=== PATIENT | male | born 1945 | race Caucasian/White ===

== ENCOUNTER 2017-09-26 10:44 | Day surgery (SDC) | payer MEDICARE, OTHER ==
[2018-04-29] MEDS ORDERED: METF500C PO (14:36)
[2018-04-29] MEDS ORDERED: LIRA0.6P SC (14:37)
[2018-04-29] MEDS ORDERED: GLIM2 PO (14:37)
[2018-06-17] MEDS ORDERED: METF500C PO (14:17)
[2018-06-17] MEDS ORDERED: GLIM4 PO (14:18)
[2018-06-17] MEDS ORDERED: PRAV20 PO (14:18)
[2018-06-17] MEDS ORDERED: LISI5 PO (14:19)
[2018-06-17] MEDS ORDERED: ERGO400 PO (14:20)
[2018-06-17] MEDS ORDERED: EYE-VITE PO (14:20)
[2018-06-17] MEDS ORDERED: ASPI81CH PO (14:21)
[2018-06-17] MEDS ORDERED: PREVAGEN PO (14:21)
[2018-06-17] MEDS ORDERED: Saw Palmetto450 MG PO (14:23)
[2018-06-17] MEDS ORDERED: Cinnamon500 MG PO (14:23)
[2018-06-17] MEDS ORDERED: DICL75ER PO (14:24)
[2018-06-17] MEDS ORDERED: NOVOLIN 70100 UNIT/1 SC (14:25)
[2018-06-30] MEDS ORDERED: LIRA0.6P SC (08:23)
[2018-06-30] MEDS ORDERED: KAPSPARGO SPRIN25 MG PO (08:24)
[2018-07-02] MEDS ORDERED: OXYC5 PO (13:57)
[2018-07-02] MEDS ORDERED: ASPI325 PO (14:16)
== END 2017-09-26 12:24 | disposition home or self-care (01) ==
LOC: ORSCSDS 10:44
PROVIDERS: Orthopaedic Surgery
PROC: 01N50ZZ Release Median Nerve, Open Approach (ICD-10-PCS; principal; 2017-09-26 12:00)
DX: G56.01 Carpal tunnel syndrome, right upper limb (principal)
CPT/HCPCS: 82947; J0690; J2250; J3010; J7120

== ENCOUNTER 2019-06-24 16:54 | Emergency (ER) | payer MEDICARE, OTHER ==
[~2019-06-24] VITALS: Ht 180.3 cm; Wt 108.4 kg
[~2019-06-24 16:54] MED LIST: ASPI325 PO; ASPI81CH PO; Cinnamon500 MG PO; DICL75ER PO; ERGO400 PO; EYE-VITE PO; GLIM2 PO; GLIM4 PO; KAPSPARGO SPRIN25 MG PO; LIRA0.6P SC; LISI5 PO; METF500C PO; NOVOLIN 70100 UNIT/1 SC; OXYC5 PO; PRAV20 PO; PREVAGEN PO; Saw Palmetto450 MG PO
[2019-06-24] MEDS ORDERED: TAMS.4ER PO (17:19)
[2019-06-24] MEDS ORDERED: DOXA2 PO (17:20)
[2019-06-24] MEDS ORDERED: PRINIVIL10 MG PO (17:21)
[2019-06-24] MEDS ORDERED: XARELTO15 MG PO (18:18)
[2019-06-24 18:23] LABS: BASOPHILS ABSOLUTE AUTO 0.06 K/mm3 (0.00-0.23); BASOPHILS PERCENT AUTO 1 % (0-2); EOSINOPHILS ABSOLUTE AUTO 0.31 K/mm3 (0.00-0.68); EOSINOPHILS PERCENT AUTO 4 % (0-6); Hematocrit 43.2 % (37.0-53.0); Hemoglobin 14.9 g/dL (13.5-17.5); IMMATURE GRAN ABSOLUTE AUTO 0.05 K/mm3 (0.00-0.10); IMMATURE GRAN PERCENT AUTO 1 % (0-1); LYMPHOCYTES ABSOLUTE AUTO 2.33 K/mm3 (0.84-5.20); LYMPHOCYTES PERCENT AUTO 26 % (21-46); MONOCYTES ABSOLUTE AUTO 0.87 K/mm3 (0.16-1.47); MONOCYTES PERCENT AUTO 10 % (4-13); Mean Corpuscular HGB 33.6 pg (26.0-34.0); Mean Corpuscular HGB Conc 34.5 g/dL (31.5-36.5); Mean Corpuscular Volume 98 fL (80-100); NEUTROPHILS ABSOLUTE AUTO 5.34 K/mm3 (1.96-9.15); NEUTROPHILS PERCENT AUTO 60 % (41-73); Platelet Count 237 K/mm3 (150-400); RDW Coefficient Variation 12.7 % (11.7-14.2); RDW Standard Deviation 45.9 fL (35.1-46.3); Red Blood Cell Count 4.43 M/mm3 (4.30-5.90); White Blood Cell Count 8.96 K/mm3 (4.00-11.30)
[2019-06-24] MEDS ORDERED: Roxicodone5 MG PO (18:27)
[2019-06-24 18:39] LABS: International Normalized Ratio 0.97; Prothrombin Time Results 10.3 Sec (9.7-11.5)
[2019-06-24 18:40] LABS: Alanine Aminotransfer (ALT/SGP 22 U/L (12-78); Albumin, Blood 3.5 g/dL (3.4-5.0); Albumin/Globulin Ratio 0.9 (0.8-1.8); Alk Phos 84 U/L (50-136); Anion Gap 6 mmol/L (6-16); Aspartate Aminotrans (AST/SGOT 11 U/L (12-37); Bilirubin, Total 0.6 mg/dL (0.1-1.0); Blood Urea Nitrogen 12 mg/dL (8-24); Bun/Creatinine Ratio 16.8 (12.0-20.0); CO2, Blood 23 mmol/L (21-32); Calcium, Blood 9.3 mg/dL (8.5-10.1); Chloride, Blood 109 mmol/L (98-108); Creatinine, Blood 0.71 mg/dL (0.60-1.20); Glomerular Filtration Rate >60 (60-); Glucose, Blood 176 mg/dL (70-99); Potassium, Blood 4.3 mmol/L (3.5-5.5); Sodium, Blood 138 mmol/L (136-145); Total Protein, Blood 7.5 g/dL (6.4-8.2)
== END 2019-06-24 18:37 | disposition home or self-care (01) ==
LOC: ER 16:54
PROVIDERS: Physician Assistant
DX: I82.401 Acute embolism and thrombosis of unspecified deep veins of right lower extremity (principal); F17.200 Nicotine dependence, unspecified, uncomplicated; Z88.5 Allergy status to narcotic agent; Z91.040 Latex allergy status; Z79.899 Other long term (current) drug therapy; Z79.4 Long term (current) use of insulin; Z79.82 Long term (current) use of aspirin
CPT/HCPCS: 36415; 80053; 85025; 85610; 99284-25

== ENCOUNTER 2019-09-29 11:34 | Day surgery (SDC) | payer MEDICARE, OTHER ==
[~2019-09-29] VITALS: Ht 180.3 cm; Wt 109.7 kg
[~2019-09-29 11:34] MED LIST changes: +Alendronate Sod70 MG PO; +DOXA2 PO; +METO25ER PO; +Novolin R100 UNIT/M SC; +PRESERVISION A1 EACH PO; +PRINIVIL10 MG PO; +Prinivil10 MG PO; +Roxicodone5 MG PO; +TAMS.4ER PO; +THERA-D2000 UNIT PO; +XARELTO15 MG PO
== END 2019-09-29 13:53 | disposition home or self-care (01) ==
LOC: ORSCSDS 11:34
PROVIDERS: Surgery
PROC: 0DBE8ZX Excision of Large Intestine, Via Natural or Artificial Opening Endoscopic, Diagnostic (ICD-10-PCS; principal; 2019-09-29 13:00)
DX: R19.7 Diarrhea, unspecified (principal); E11.9 Type 2 diabetes mellitus without complications; E78.00 Pure hypercholesterolemia, unspecified; I10 Essential (primary) hypertension; Z86.718 Personal history of other venous thrombosis and embolism; Z79.01 Long term (current) use of anticoagulants; Z79.4 Long term (current) use of insulin; Z79.899 Other long term (current) drug therapy
CPT/HCPCS: 82947; 88305; J2704; J7120

== ENCOUNTER 2021-01-28 22:51 | Inpatient (IN) | payer MEDICARE, OTHER ==
[~2021-01-28] VITALS: Ht 182.9 cm; Wt 108.7 kg
[~2021-01-28 22:51] MED LIST changes: +NOVOLIN 70100 UNIT/3; -Novolin R100 UNIT/M SC; +PRESERVISION A1 EAC1 PO; -PRESERVISION A1 EACH PO
[2021-01-28 23:18] LABS: BASOPHILS ABSOLUTE AUTO 0.01 K/mm3 (0.00-0.23); BASOPHILS PERCENT AUTO 0 % (0-2); EOSINOPHILS PERCENT AUTO 0 % (0-6); Hematocrit 37.4 % (37.0-53.0); Hemoglobin 13.3 g/dL (13.5-17.5); IMMATURE GRAN ABSOLUTE AUTO 0.04 K/mm3 (0.00-0.10); IMMATURE GRAN PERCENT AUTO 0 % (0-1); LYMPHOCYTES ABSOLUTE AUTO 0.61 K/mm3 (0.84-5.20); LYMPHOCYTES PERCENT AUTO 6 % (21-46); MONOCYTES ABSOLUTE AUTO 0.76 K/mm3 (0.16-1.47); MONOCYTES PERCENT AUTO 8 % (4-13); Mean Corpuscular HGB Conc 35.6 g/dL (31.5-36.5); Mean Corpuscular Volume 93 fL (80-100); Mean Platelet Volume 10.7 fL (9.1-12.4); NEUTROPHILS ABSOLUTE AUTO 8.06 K/mm3 (1.96-9.15); NEUTROPHILS PERCENT AUTO 85 % (41-73); Platelet Count 176 K/mm3 (150-400); RDW Coefficient Variation 12.8 % (11.7-14.2); RDW Standard Deviation 43.8 fL (35.1-46.3); Red Blood Cell Count 4.03 M/mm3 (4.30-5.90); White Blood Cell Count 9.48 K/mm3 (4.00-11.30)
[2021-01-28] MEDS ORDERED: PIOGLITAZONE HC15 MG PO (23:22)
[2021-01-28 23:30] LABS: Alanine Aminotransfer (ALT/SGP 40 U/L (12-78); Albumin, Blood 2.5 g/dL (3.4-5.0); Albumin/Globulin Ratio 0.6 (0.8-1.8); Alk Phos 67 U/L (50-136); Anion Gap 8 mmol/L (6-16); Aspartate Aminotrans (AST/SGOT 43 U/L (12-37); Bilirubin, Total 0.7 mg/dL (0.1-1.0); Blood Urea Nitrogen 14 mg/dL (8-24); Bun/Creatinine Ratio 16.5 (12.0-20.0); CO2, Blood 20 mmol/L (21-32); Calcium, Blood 8.3 mg/dL (8.5-10.1); Chloride, Blood 99 mmol/L (98-108); Creatinine, Blood 0.85 mg/dL (0.60-1.20); Globulin, Blood 4.4 g/dL (2.2-4.0); Glomerular Filtration Rate >60 (60-); Glucose, Blood 248 mg/dL (70-99); Potassium, Blood 3.7 mmol/L (3.5-5.5); Sodium, Blood 127 mmol/L (136-145); Total Protein, Blood 6.9 g/dL (6.4-8.2)
[2021-01-29 00:05] LABS: Troponin I <0.015 ng/mL (0.000-0.040)
--- NOTE | 2021-01-29 03:26 | NUR ---
ASSUMED CARE PT ARRIVED ON FLOOR APPROX 0200. PT IS ALERTX 2-3. PT FOLLOWS COMMANDS BUT IS FORGETFUL AND UNABLE TO GIVE ALL OF MEDICAL HX. PT'S IS AT BEDSIDE AND IS ALSO UNABLE TO HELP WITH ALL OF MEDICAL HX DUE TO BEING QUILEUTE. PT IS QUILEUTE. VITAL SIGNS ARE STABLE. PT IS ON 5L NC WITH SATS ABOVE 92%. PT DENIES CHEST PAIN AND STS SOB ONLY WHEN COUGHING. PT HAS A WEAKNESS IN RIGHT ARM AND IS UNABLE TO MOVE IT BY SELF; REQUIRES ASSISTANCE OF LEFT HAND; PT STS THAT THAT IS DUE TO THE MODERNA VACINE. PT IS WEARING HOME BRIEF AND STS THAT HE IS INCONT OF BOTH BOWEL AND URINE. PT WAS ORIENTED TO ROOM AND CALL LIGHT IS WITHIN REACH. WILL CONTINUE TO MONITOR PT.
--- NOTE | 2021-01-29 04:51 | NUR ---
PT'S SATS WERE BELOW 85% ON 5LNC. RT WAS CALLED AND WAS PUT ON 9L HIFLOW.
[2021-01-29 05:40] LABS: Source, Urine Clean Catch
[2021-01-29 05:43] LABS: Bilirubin, Urine Neg (Neg); Blood, Urine 1+ (Neg); Glucose Qualitative, Urine 1+ (Neg); Ketones, Urine 1+ (Neg); Leukocyte Esterase, Urine Neg (Neg); Nitrite, Urine Neg (Neg); Protein, Urine 3+ (Neg); Specific Gravity, Urine 1.015 (1.003-1.022); Urobilinogen, Urine NORM (Normal)
[2021-01-29 05:52] LABS: Appearance, Urine Clear (Clear); Color, Urine Yellow (P-Yellow)
[2021-01-29 05:54] LABS: Bacteria Few /hpf; Red Blood Cells, Urine 0-2 /hpf (0-2); Squamous Epithelial Cells Rare /hpf (Few)
--- NOTE | 2021-01-29 07:07 | NUR ---
SHIFT SUMMARY PT IS ALERT WITH SOME CONFUSION AND FORGETFULNESS. VITALS ARE STABLE AND ON 9L HIFLOW NC WITH SATS ABOVE 92%. PT DENIES CP AND SOME SOB WHEN COUGHING. PT'S IS IN ROOM WITH HIM. PT STS THAT HE IS INCONT OF STOOL AND URINE AND BRIEF IS IN PLACE. PT IS STABLE ON FEET WITH SOME WEAKNESS. PT IS INFUSING NS.
[2021-01-29 11:43] LABS: BASOPHILS PERCENT AUTO 0 % (0-2); EOSINOPHILS PERCENT AUTO 0 % (0-6); Hematocrit 40.2 % (37.0-53.0); IMMATURE GRAN ABSOLUTE AUTO 0.03 K/mm3 (0.00-0.10); IMMATURE GRAN PERCENT AUTO 1 % (0-1); LYMPHOCYTES ABSOLUTE AUTO 0.41 K/mm3 (0.84-5.20); LYMPHOCYTES PERCENT AUTO 8 % (21-46); MONOCYTES ABSOLUTE AUTO 0.24 K/mm3 (0.16-1.47); MONOCYTES PERCENT AUTO 5 % (4-13); Mean Corpuscular HGB 32.7 pg (26.0-34.0); Mean Corpuscular HGB Conc 34.8 g/dL (31.5-36.5); Mean Corpuscular Volume 94 fL (80-100); NEUTROPHILS ABSOLUTE AUTO 4.59 K/mm3 (1.96-9.15); NEUTROPHILS PERCENT AUTO 87 % (41-73); Platelet Count 161 K/mm3 (150-400); RDW Coefficient Variation 12.9 % (11.7-14.2); RDW Standard Deviation 44.3 fL (35.1-46.3); Red Blood Cell Count 4.28 M/mm3 (4.30-5.90); White Blood Cell Count 5.27 K/mm3 (4.00-11.30)
[2021-01-29 12:11] LABS: Alanine Aminotransfer (ALT/SGP 38 U/L (12-78); Albumin, Blood 2.3 g/dL (3.4-5.0); Albumin/Globulin Ratio 0.5 (0.8-1.8); Alk Phos 66 U/L (50-136); Anion Gap 5 mmol/L (6-16); Aspartate Aminotrans (AST/SGOT 51 U/L (12-37); Bilirubin, Total 0.6 mg/dL (0.1-1.0); Blood Urea Nitrogen 15 mg/dL (8-24); Bun/Creatinine Ratio 21.8 (12.0-20.0); CO2, Blood 21 mmol/L (21-32); Calcium, Blood 8.7 mg/dL (8.5-10.1); Chloride, Blood 104 mmol/L (98-108); Creatinine, Blood 0.69 mg/dL (0.60-1.20); Globulin, Blood 4.9 g/dL (2.2-4.0); Glomerular Filtration Rate >60 (60-); Glucose, Blood 290 mg/dL (70-99); Potassium, Blood 5.4 mmol/L (3.5-5.5); Sodium, Blood 130 mmol/L (136-145); Total Protein, Blood 7.2 g/dL (6.4-8.2)
--- NOTE | 2021-01-29 18:37 | NUR ---
PT PRESENTS WITH IMPAIRED COGNITION THROUGHOUT SHIFT; PT'S AT BEDSIDE; PT AND DENY IMPAIRED COGNITION; PT EXHIBITS SEVERE SHORT TERM MEMORY DEFICIT AND INFORMATION PROCESSING ISSUES; PT SATTING >92% ON 9L HUMIDIFIED OXYGEN; PT HAD FORMED BM; PT HEAVILY DIAPHORETIC BUT DENIED ANY OTHER SYMPTOMS; PT HAD FREQUENT PVCS; DR. LACY NOTIFIED OF THIS AT 1004; PT'S HEART RATE IN 40'S AND 50'S SO METOPROLOL AND LISINOPRIL HELD AND DR. LACY NOTIFIED OF THIS AT 1103; PT'S CBGS REQUIRED CORRECTION PER MAR; PT DENIES ADDITIONAL CONCERNS AT THIS TIME
--- NOTE | 2021-01-30 05:48 | NUR ---
SHIFT SUMMARY PATIENT IS ALERT AND ORIENTED X3, BUT SHOWS CONFUSION AND SAYS THINGS THAT DO NOT MAKE SENSE. HE IS UNAWARE OF THINGS LIKE THE NC IN HIS NOSE, OR HIS MEDICATION, HE IS A POOR HISTORIAN. PATIENT STATES HAVING RIGHT ARM WEAKNESS AND CAN NOT LIFT IT BUT WHEN DOING MY ASSESSMENT PATIENT LIFTED BOTH ARMS AND HAD EQUAL INCOME AUDITOR STRENGTH, AND USES RIGHT ARM. 02 SATS 94% ON 9L VIA NC. LUNGS SOUNDS DIMINISHED. PATIENT IS ANXIOUS AND GETS AGITATED EASILY. CBG 375, MEDICATED PER EMAR AND CALLED HOSPITALIST, ORDERS TO CHANGE COVERAGE SCALE TO MEDIUM, ADDITIONAL INSULIN GIVEN, SEE EMAR. VSS, NO ACUTE CHANGES. BED ALARM IS ON, CALL LIGHT IN REACH.
[2021-01-30 07:49] LABS: BASOPHILS ABSOLUTE AUTO 0.01 K/mm3 (0.00-0.23); BASOPHILS PERCENT AUTO 0 % (0-2); EOSINOPHILS PERCENT AUTO 0 % (0-6); Hematocrit 41.2 % (37.0-53.0); Hemoglobin 14.3 g/dL (13.5-17.5); IMMATURE GRAN ABSOLUTE AUTO 0.07 K/mm3 (0.00-0.10); IMMATURE GRAN PERCENT AUTO 1 % (0-1); LYMPHOCYTES ABSOLUTE AUTO 0.76 K/mm3 (0.84-5.20); LYMPHOCYTES PERCENT AUTO 7 % (21-46); MONOCYTES ABSOLUTE AUTO 0.73 K/mm3 (0.16-1.47); MONOCYTES PERCENT AUTO 7 % (4-13); Mean Corpuscular HGB 32.6 pg (26.0-34.0); Mean Corpuscular HGB Conc 34.7 g/dL (31.5-36.5); Mean Corpuscular Volume 94 fL (80-100); NEUTROPHILS ABSOLUTE AUTO 9.06 K/mm3 (1.96-9.15); NEUTROPHILS PERCENT AUTO 85 % (41-73); Platelet Count 210 K/mm3 (150-400); RDW Coefficient Variation 12.6 % (11.7-14.2); RDW Standard Deviation 44.1 fL (35.1-46.3); Red Blood Cell Count 4.38 M/mm3 (4.30-5.90); White Blood Cell Count 10.63 K/mm3 (4.00-11.30)
[2021-01-30 08:06] LABS: Anion Gap 5 mmol/L (6-16); Blood Urea Nitrogen 19 mg/dL (8-24); Bun/Creatinine Ratio 25.4 (12.0-20.0); CO2, Blood 24 mmol/L (21-32); Calcium, Blood 8.7 mg/dL (8.5-10.1); Chloride, Blood 105 mmol/L (98-108); Creatinine, Blood 0.75 mg/dL (0.60-1.20); Glomerular Filtration Rate >60 (60-); Glucose, Blood 316 mg/dL (70-99); Potassium, Blood 3.9 mmol/L (3.5-5.5); Sodium, Blood 134 mmol/L (136-145)
--- NOTE | 2021-01-30 10:39 | NUR ---
PT ALERT AND ORIENTED X4 ABLE TO ANSWER ALL ORIENTING QUESTIONS APPROPRIATLY. AT TIMES REPEATING SELF AND HAS RANDOM STATEMENTS. ANXIOUS THIS MORNING ABOUT AT HOME. CASE MANAGEMENT CONTACTED TO MEET WITH PATIENT. TELE SHOWING SINUS WITH PVCS AND HR 70'S. DENIES CHEST PAIN/PRESSURE. ON 9 L O2 VIA NASAL CANNULA SATING AT 94-95%. DENIES SOB. AUDIBLE WHEEZING AND SOB WITH MOVEMENT IN BED. BED ALARM ON FOR SAFETY. USING URINAL WITH ASSITANCE. ATTENDS IN PLACE. RIGHT WRIST IV FLUSHING WELL AND SALINE LOCKED. IV ANTIBIOTICS INFUSED THIS AM. ACHS IN PLACE. VITAL SIGNS STABLE. PT DENIES ANY NEEDS. PT USING PERSONAL CELLPHONE AND ATTEMPTED TO REACH MULTIPLE TIMES THIS AM. WILL CONTINUE TO MONITOR AND TRANSFER UP TO MEDICAL FLOOR.
--- NOTE | 2021-01-30 11:39 | NUR ---
PT TRANSFERRED FROM PCU, HERE APPROX 1115, PT STOOD AND TRANSFERRED WITH 1 ASST TO BED. A/O, BUT OCC STATES ODD, INAPPROPRIATE OUT OF CONTEXT STATEMENTS. BED IN LOW POSITION, CALL LITE IN REACH, BED ALARM ON FOR SAFETY
--- NOTE | 2021-01-30 11:41 | NUR ---
[facility] CALLED FOR OXIMETRY
--- NOTE | 2021-01-30 14:40 | NUR ---
SPOKE TO DR CONSTANTINO RE MOMEMTARY DROPPING H/R. TELE ORDERED. PT DROPS TO HIGH 40'S FOR FEW SECONDS THEN LOW 50'S FOR FEW SECONDS, THEN RETURNS TO NORMAL PER CONT BIOX. SPOKE TO ABOUT PT HOME USE OF CPAP, AND THAT WE DONT HAVE ONE AT THIS TIME. - DR ARANGO ORDERED FOR PT. CALLED RT. THEY NEED SETTINGS. THEY TO SET UP.
--- NOTE | 2021-01-30 16:01 | NUR ---
PER TELE. PT IN SINUS RATE 70'S. DOES DROP TO HIGH 40'S TO LOW 50'S FOR FEW SECONDS THEN RETURNS. THIS IS CONSISTANT WITH CONTBIOX READINGS. SAME DISCUSSED WITH DR BOOGIE AM.
--- NOTE | 2021-01-30 16:39 | NUR ---
CALLED LAURA BAILEY ABOUT INFO ON CPAP SETTINGS. INFO FROM DANIEL : RAMPTIME 10MIN, HUMIDITY 4, FULL FACE MASK. [facility]ARE. [phone]
--- NOTE | 2021-01-30 18:28 | NUR ---
PT PLEASANT SINCE TRANSFER FROM PCU. WAS ABLE TO TITRATE DOWN FROM 9 L TO 2L. SAT REMAINS 91-93%. DID GET RT TO SET UP NITETIME CPAP. FAMILY STATES HE IS CONFUSED AND MAKES INAPPROPRIATE STATEMENTS. SAYS THINGS THAT ARE NOT RELATED TO CURRENT MOMENT AT TIMES. NO NEW CONCERNS NOTED THIS SHIFT. DAUGHTER IN LAW JOSUE [phone] BED IN LOW POSITION, CALL LITEIN REACH, BED ALARM ONFOR SAFETY
--- NOTE | 2021-01-30 22:28 | NUR ---
ASSUMED CARE. AOX3 WITH PERIODS OF RANDOM NON-SENICAL SPEECH. THE RANDOM EPISODES DON'T EVEN PERTAIN TO THE CONVERSATION OR THE QUESTION ASKED. HE DOES NOT REALIZE HE DOES IT. COOPERATIVE. FOLLOWS DIRECTION. FORGETS TO USE CALL LIGHT. HAS SET OFF THE BED ALARM JUST TRYING TO USE URINAL OR GET HIS BAG. REMIND HIM TO USE THE CALL LIGHT AND AGAIN HE DOES NOT. LUNG SOUNDS ARE CLEAR WITH DIMINISHED BASES. OCCATIONAL COUGH. NO PAIN EXCEPT WHEN HE LAYS ON HIS SIDE HE GETS AN OCCAITONAL SPIKE. DENIES SOB BUT WHEN HE SITS UP OR MOVES ALOT HE GETS SOB. DOWN TO 2 LITERS, SATS HOLDING AT 89-92%. VSS/AFEBRILE. WILL CONTINUE TO MONITOR.
--- NOTE | 2021-01-31 05:03 | NUR ---
SHIFT SUMMARY: AOX3 WITH NON-SENICAL SPEECH. EPISODES DON'T RELATE TO CONVERSATION OR QUESTIONS. DOES NOT REALIZE HE IS DOING IT. DENIES PAIN, EXCEPT OCCATIONALLY HE GETS STABBING PAIN IN SIDE. LUNG SOUNDS DIMINISHED IN BASES. ON 2 LITERS OF O2 HELD SATS >90%. WORE CPAP AT REST, SLEPT REALLY WELL SATS ALSO REMAINED >90%. USED URINAL AT BEDSIDE. NO COUGH NOTED THIS SHIFT. VSS/AFEBRILE. BLOOD SUGAR 235 AT 3AM ADN 252 THIS AM LABS. BED ALARM ON FOR SAFETY. CALL LIGHT IN REACH.
[2021-01-31 05:13] LABS: Anion Gap 6 mmol/L (6-16); Blood Urea Nitrogen 18 mg/dL (8-24); Bun/Creatinine Ratio 23.3 (12.0-20.0); CO2, Blood 24 mmol/L (21-32); Calcium, Blood 8.2 mg/dL (8.5-10.1); Chloride, Blood 106 mmol/L (98-108); Creatinine, Blood 0.77 mg/dL (0.60-1.20); Glomerular Filtration Rate >60 (60-); Glucose, Blood 252 mg/dL (70-99); Sodium, Blood 136 mmol/L (136-145)
--- NOTE | 2021-01-31 18:18 | NUR ---
SHIFT SUMMARY PT ALERT AND CONFUSED AT TIMES. PT IS 1P ASSIST; AND USES URINAL AT BEDSIDE. PT ON 02 SATS LOW 90S ON 2L. PT DENIES ANY PAIN OR DISCOMFORT. PT WORRIED ABOUT HIS . PT ON DAY 3 REMDESIVIR. PT IS SOMETIMES JAVIER TO NRS. BED IS IN THE LOWEST POSITION AND CALL LIGHT WITHIN REACH
--- NOTE | 2021-01-31 20:22 | NUR ---
ASSUMED CARE. AOX3, MORE CLEAR IN COGNITION THEN PREVIOUS NIGHT. ABLE TO HOLD CONVERSATION. STILL HAS PERIODS OF RANDOM STATEMENTS BUT LESS OFTEN. LUNG SOUNDS ARE CLEAR, LITTLE DIMINISHED IN BASES. NO WHEEZES. DENIES SOB, COUGH IS MINIMAL. SATS 94% ON 2 LITERS. REMOVED O2 HE REMAINED 91-92% ON RA WHILE i WAS IN THE ROOM. VS WITH SLIGHT ELEVATION IN BP TO 150/71. VOIDING WELL WITH URINAL. BLOOD SUGAR 303, ADMINISTERED INSULIN. PM MED GIVEN. UP WATCHING TV FOR A WHILE. CALL LIGHT IN REACH.
--- NOTE | 2021-01-31 22:00 | NUR ---
CPAP ON, REMINDER ON DOOR FOR N95 MASK. TELE RUNNING SINUS JAVIER AT 51. SATS HOLDING AT 92-93%. PATIENT SLEEPING. WILL CONTINUE TO MONITOR.
--- NOTE | 2021-02-01 01:00 | NUR ---
AWAKE, EMPTIED URINAL, DENIES ANY CONCERNS OR NEEDS AT THIS TIME. TURNED DOWN HEAT PER REQUEST. CHANGED BATTERY IN TELE BOX. WILL CONTINUE TO MONITOR.
--- NOTE | 2021-02-01 05:24 | NUR ---
SHIFT SUMMARY: AOX2, FORGETFUL. LESS EPISODES OF NON-SENSICAL SPEECH. ABLE TO HOLD CONVERSATION AND FOLLOW DIRECTION MORE. STATES HE IS BREATHING BETTER. SATS 94% ON 2 LITERS, DISCONTINUED O2 NC. HE REMAINED 92% ON AVERAGE. WHILE ON CPAP HE RAN 92-94% WITH 2 LITER BLEED IN. SINUS JAVIER AT TIMES RUNNING IN THE 50'S. LS DIMINISHED IN BASES, NO COUGH THIS SHIFT. URINAL AT BEDSIDE. GOOD APPETITE.VSS/AFEBRILE. BLOOD SUGAR 303. INSULIN GIVEN. HE HAS DONE WELL TONIGHT. CALL LIGHT HAS REMAINED IN REACH.
[2021-02-01 05:28] LABS: BASOPHILS ABSOLUTE AUTO 0.01 K/mm3 (0.00-0.23); BASOPHILS PERCENT AUTO 0 % (0-2); EOSINOPHILS PERCENT AUTO 0 % (0-6); Hematocrit 39.9 % (37.0-53.0); Hemoglobin 13.7 g/dL (13.5-17.5); IMMATURE GRAN ABSOLUTE AUTO 0.07 K/mm3 (0.00-0.10); IMMATURE GRAN PERCENT AUTO 1 % (0-1); LYMPHOCYTES ABSOLUTE AUTO 1.07 K/mm3 (0.84-5.20); LYMPHOCYTES PERCENT AUTO 13 % (21-46); MONOCYTES ABSOLUTE AUTO 0.78 K/mm3 (0.16-1.47); MONOCYTES PERCENT AUTO 9 % (4-13); Mean Corpuscular HGB Conc 34.3 g/dL (31.5-36.5); Mean Corpuscular Volume 93 fL (80-100); Mean Platelet Volume 10.4 fL (9.1-12.4); NEUTROPHILS ABSOLUTE AUTO 6.49 K/mm3 (1.96-9.15); NEUTROPHILS PERCENT AUTO 77 % (41-73); Platelet Count 270 K/mm3 (150-400); RDW Coefficient Variation 12.8 % (11.7-14.2); RDW Standard Deviation 43.9 fL (35.1-46.3); Red Blood Cell Count 4.28 M/mm3 (4.30-5.90); White Blood Cell Count 8.42 K/mm3 (4.00-11.30)
[2021-02-01 05:52] LABS: Anion Gap 5 mmol/L (6-16); Blood Urea Nitrogen 15 mg/dL (8-24); Bun/Creatinine Ratio 20.7 (12.0-20.0); CO2, Blood 27 mmol/L (21-32); Calcium, Blood 8.4 mg/dL (8.5-10.1); Chloride, Blood 103 mmol/L (98-108); Creatinine, Blood 0.72 mg/dL (0.60-1.20); Glomerular Filtration Rate >60 (60-); Glucose, Blood 237 mg/dL (70-99); Potassium, Blood 4.3 mmol/L (3.5-5.5); Sodium, Blood 135 mmol/L (136-145)
--- NOTE | 2021-02-01 07:45 | NUR ---
UPON MY INITIAL ASSESSMENT, PT SITING AT EDGE OF BED APPEARING QUITE ANXIOUS. CALL PERSON WAS NOT ATTACHED TO PT AND ON THE FLOOR, CONTINUOUS OXIMETRY HAD ALSO BEEN DISCONNECTED BY PATIENT. INTRODUCED MYSELF AND ASKED WHAT WAS WRONG, HE STATED "I DONT UNDERSTAND THIS. WHY AM I A PRISONER HERE? ALL OF THESE THINGS ARE BEEPING CONSTANTLY!" ACTIVELY LISTENED TO PATIENT'S CONCERNS. EXPLAINED TO HIM THAT HE WAS IN THE HOSPITAL D/T HIS COVID VIRUS INFECTION AND THAT HE HAD REQUIRED OXYGEN UNTIL THIS MORNING, REASON FOR CALL PERSON AND OXIMETRY. LEFT TELE AND OXIMETRY OFF WHILE WE TALKED. HE ALSO C/O THAT HE DIDN'T "HAVE ANY OF MY STUFF--NO DEODORANT, I HAVEN'T SHAVED IN I DON'T KNOW HOW MANY DAYS, I HAVEN'T EVEN BRUSHED MY TEETH. AND I DON'T HAVE MY POLICE OFFICER BOOKING FOR MY PHONE." PROCEEDED TO SET PT UP WITH ALL TOILETRIES NEEDED, ASSISTED HIM INTO THE BR WHERE HE WAS ABLE TO GET HIS MORNING HYGIENE DONE. HE FELT BETTER AFTER THIS AND WAS MORE CALM. HE DID APPEAR A BIT CONFUSED AND REPEATED HIMSELF SEVERAL TIMES. O2 SAT WAS 91-93% ON ROOM AIR, BUT WAS DYSPNEIC AFTER USNG THE BR. RECEIVED VERBAL ORDER FROM DR. VEGA TO D/C TELEMETRY. PLAN IS D/C HOME TOMORROW, LAST DOSE OF REMDESIVIR TO BE GIVEN TONIGHT. PT IS AWARE OF THE PLAN.
--- NOTE | 2021-02-01 17:13 | NUR ---
SHIFT SUMMARY: NO ACUTE EVENTS. NO FURTHER EPISODES OF CONFUSION OR ANXIETY, HAS BEEN CALM AND COOPERATIVE. DENIES PAIN. ON ROOM AIR, O2 SAT > 92%, NO COUGH BUT MARTIN STILL. CBG ELEVATED > 200 ALL DAY. AMBULATING IN ROOM WITH FWW. GOOD APPETITE. IS LOOKING FORWRD TO D/C HOME.
[2021-02-02 05:06] LABS: Anion Gap 6 mmol/L (6-16); Blood Urea Nitrogen 17 mg/dL (8-24); Bun/Creatinine Ratio 23.8 (12.0-20.0); CO2, Blood 24 mmol/L (21-32); Calcium, Blood 8.5 mg/dL (8.5-10.1); Chloride, Blood 102 mmol/L (98-108); Creatinine, Blood 0.72 mg/dL (0.60-1.20); Glomerular Filtration Rate >60 (60-); Glucose, Blood 257 mg/dL (70-99); Potassium, Blood 4.5 mmol/L (3.5-5.5); Sodium, Blood 132 mmol/L (136-145)
--- NOTE | 2021-02-02 05:37 | NUR ---
SHIFT SUMMARY: MORE ORIENTED, SOME RANDOM CONFUSION VERY MINIMAL. FOLLOWING DIRECTION. INCREASE IN STREGNTH AND MOVEMENT. ON RA. SATS REMAINED >92%. BIPAP ON AT NOC, SATS REMAINED SAME.VS WNL, JAVIER HR IN THE 40-50 WHILE ASLEEP.LUNG SOUNDS DIMINISHED MOSTLY ON THE RIGHT. NO COUGH. NEW IV PLACED TO RIGHT FA DUE TO LEAKAGE. BLOOD SUGAR 352 AT HS AND 257 AROUND 0400. NA LOW AT 132, REST OF LABS LOOK OK. HOPES TO GO HOME TODAY. CALL LIGHT IN REACH AND USED APPROPRIATLY.
--- NOTE | 2021-02-02 15:06 | NUR ---
PATIENT DISCHARGED TO HOME ACCOMPANIED BY STEP DAUGHTER. PT VERBALIZED UNDERSTANDING OF D/C INSTRUCTIONS, INCLUDING THE NEED TO SELF ISOLATE FOR 14 DAYS FROM DATE OF COVID TEST AND THAT HEALTH DEPT WILL BE IN TOUCH WITH HIM. HAS ALL BELONGINGS. OFF UNIT VIA W/C AT 1445.
== END 2021-02-02 14:45 | disposition home or self-care (01) | DRG 177 ==
LOC: ER 22:51 → PCU 01-29 00:51 → MEDS 01-30 11:06
PROVIDERS: Emergency Medicine; Family Medicine; ADMIT Internal Medicine
PROC: XW033E5 Introduction of Remdesivir Anti-infective into Peripheral Vein, Percutaneous Approach, New Technology Group 5 (ICD-10-PCS; principal; 2021-01-29)
DX: U07.1 COVID-19 (principal); J96.01 Acute respiratory failure with hypoxia; J12.82 Pneumonia due to coronavirus disease 2019; A08.39 Other viral enteritis; G93.1 Anoxic brain damage, not elsewhere classified; Z79.4 Long term (current) use of insulin; Z79.01 Long term (current) use of anticoagulants; Z96.659 Presence of unspecified artificial knee joint; Z86.718 Personal history of other venous thrombosis and embolism; E86.0 Dehydration; E66.9 Obesity, unspecified; I10 Essential (primary) hypertension; Z68.33 Body mass index [BMI] 33.0-33.9, adult
CPT/HCPCS: 36415; 71045; 80048; 80053; 81001; 82947; 83036; 83880; 84145; 84484; 85025; 86140; 93005; 93010; 94660; 94761; 94762; 96365; 96375; 97161; 97165; 97535; 99285-25; A9270; J0456; J0696; J1100; J7030; J7050

== ENCOUNTER 2022-07-08 09:58 | Emergency (ER) | payer MEDICARE, OTHER ==
[~2022-07-08] VITALS: Ht 180.3 cm; Wt 122.5 kg
[~2022-07-08 09:58] MED LIST changes: +PIOGLITAZONE HC15 MG PO
[2022-07-08 11:02] LABS: Source, Urine Clean Catch
[2022-07-08 11:18] LABS: BASOPHILS ABSOLUTE AUTO 0.06 K/mm3 (0.00-0.23); BASOPHILS PERCENT AUTO 1 % (0-2); EOSINOPHILS ABSOLUTE AUTO 0.07 K/mm3 (0.00-0.68); EOSINOPHILS PERCENT AUTO 1 % (0-6); Hematocrit 43.3 % (37.0-53.0); Hemoglobin 14.6 g/dL (13.5-17.5); IMMATURE GRAN ABSOLUTE AUTO 0.04 K/mm3 (0.00-0.10); IMMATURE GRAN PERCENT AUTO 0 % (0-1); LYMPHOCYTES PERCENT AUTO 12 % (21-46); MONOCYTES PERCENT AUTO 10 % (4-13); Mean Corpuscular HGB 32.4 pg (26.0-34.0); Mean Corpuscular HGB Conc 33.7 g/dL (31.5-36.5); Mean Corpuscular Volume 96 fL (80-100); Mean Platelet Volume 10.8 fL (9.1-12.4); NEUTROPHILS ABSOLUTE AUTO 7.62 K/mm3 (1.96-9.15); NEUTROPHILS PERCENT AUTO 76 % (41-73); Platelet Count 279 K/mm3 (150-400); RDW Coefficient Variation 12.8 % (11.7-14.2); RDW Standard Deviation 45.7 fL (35.1-46.3); White Blood Cell Count 9.99 K/mm3 (4.00-11.30)
[2022-07-08 11:36] LABS: Appearance, Urine Cloudy (Clear); Bilirubin, Urine Neg (Neg); Blood, Urine 5+ (Neg); Color, Urine Brown (P-Yellow); Glucose Qualitative, Urine 4+ (Neg); Ketones, Urine Neg (Neg); Leukocyte Esterase, Urine 3+ (Neg); Nitrite, Urine Pos (Neg); Protein, Urine 3+ (Neg); Specific Gravity, Urine 1.015 (1.003-1.022); Urobilinogen, Urine NORM (Normal)
[2022-07-08 11:53] LABS: Albumin/Globulin Ratio 0.7 (0.8-1.8); Bilirubin, Total 0.4 mg/dL (0.1-1.0); Bun/Creatinine Ratio 20.5 (12.0-20.0); Calcium, Blood 8.9 mg/dL (8.5-10.1); Creatinine, Blood 0.88 mg/dL (0.60-1.20); Globulin, Blood 4.3 g/dL (2.2-4.0); Potassium, Blood 4.4 mmol/L (3.5-5.5); Total Protein, Blood 7.3 g/dL (6.4-8.2)
[2022-07-08 11:58] LABS: Bacteria Few /hpf; Red Blood Cells, Urine TNTC /hpf (0-2); Squamous Epithelial Cells Few /hpf (Few); White Blood Cells, Urine TNTC /hpf (0-5)
[2022-07-08] MEDS ORDERED: B COMPLEX FORM0.4 MG PO (12:20)
[2022-07-08] MEDS ORDERED: FUROSEMIDE20 MG PO (12:21)
[2022-07-08] MEDS ORDERED: METO50ER PO (12:22)
[2022-07-08] MEDS ORDERED: Pyridium100 MG PO (13:11)
[2022-07-08] MEDS ORDERED: CEFD300 PO (13:11)
== END 2022-07-08 13:30 | disposition home or self-care (01) ==
LOC: ER 09:58
PROVIDERS: Physician Assistant
DX: N30.91 Cystitis, unspecified with hematuria (principal); E11.9 Type 2 diabetes mellitus without complications; I10 Essential (primary) hypertension; Z79.01 Long term (current) use of anticoagulants; Z79.899 Other long term (current) drug therapy; Z88.5 Allergy status to narcotic agent; Z91.040 Latex allergy status; Z87.891 Personal history of nicotine dependence
CPT/HCPCS: 36415; 74176; 76870; 80053; 81001; 85025; A9270; J0696

== ENCOUNTER → 2022-08-13 | Outpatient (CLI) | payer MEDICARE, OTHER ==
[~2022-08-13] MED LIST changes: +B COMPLEX FORM0.4 MG PO; +CEFD300 PO; +FUROSEMIDE20 MG PO; +METO50ER PO; +Pyridium100 MG PO
== END ==
LOC: PLD 08-13 13:31
DX: D48.5 Neoplasm of uncertain behavior of skin (principal)
CPT/HCPCS: 88341; 88342

== ENCOUNTER 2023-05-02 13:37 | Emergency (ER) | payer MEDICARE, OTHER ==
[~2023-05-02] VITALS: Ht 180.3 cm; Wt 127.0 kg
[2023-05-02 14:30] LABS: BASOPHILS ABSOLUTE AUTO 0.07 K/mm3 (0.00-0.23); BASOPHILS PERCENT AUTO 1 % (0-2); EOSINOPHILS ABSOLUTE AUTO 0.29 K/mm3 (0.00-0.68); EOSINOPHILS PERCENT AUTO 5 % (0-6); Hematocrit 40.6 % (37.0-53.0); Hemoglobin 14.3 g/dL (13.5-17.5); IMMATURE GRAN ABSOLUTE AUTO 0.04 K/mm3 (0.00-0.10); IMMATURE GRAN PERCENT AUTO 1 % (0-1); LYMPHOCYTES ABSOLUTE AUTO 1.73 K/mm3 (0.84-5.20); LYMPHOCYTES PERCENT AUTO 28 % (21-46); MONOCYTES ABSOLUTE AUTO 0.76 K/mm3 (0.16-1.47); MONOCYTES PERCENT AUTO 12 % (4-13); Mean Corpuscular HGB 32.5 pg (26.0-34.0); Mean Corpuscular HGB Conc 35.2 g/dL (31.5-36.5); Mean Corpuscular Volume 92 fL (80-100); Mean Platelet Volume 9.7 fL (9.1-12.4); NEUTROPHILS ABSOLUTE AUTO 3.34 K/mm3 (1.96-9.15); NEUTROPHILS PERCENT AUTO 54 % (41-73); Platelet Count 276 K/mm3 (150-400); RDW Coefficient Variation 13.2 % (11.7-14.2); RDW Standard Deviation 45.1 fL (35.1-46.3); White Blood Cell Count 6.23 K/mm3 (4.00-11.30)
[2023-05-02 14:47] LABS: Albumin, Blood 2.9 g/dL (3.4-5.0); Albumin/Globulin Ratio 0.7 (0.8-1.8); Bilirubin, Total 0.5 mg/dL (0.1-1.0); Calcium, Blood 8.8 mg/dL (8.5-10.1); Globulin, Blood 4.1 g/dL (2.2-4.0); Potassium, Blood 3.7 mmol/L (3.5-5.5)
[2023-05-02 15:11] VITALS: BP 143/90
== END 2023-05-02 16:53 | disposition home or self-care (01) ==
LOC: ER 13:37
PROVIDERS: Emergency Medicine
DX: E83.42 Hypomagnesemia (principal); E86.0 Dehydration; R19.7 Diarrhea, unspecified; Z88.0 Allergy status to penicillin; Z91.040 Latex allergy status; Z79.899 Other long term (current) drug therapy; E11.9 Type 2 diabetes mellitus without complications; I10 Essential (primary) hypertension; Z87.891 Personal history of nicotine dependence
CPT/HCPCS: 80053; 83735; 85025; 96365; 99284-25; J3475

== ENCOUNTER 2023-05-07 15:51 | Emergency (ER) | payer MEDICARE, OTHER ==
[~2023-05-07] VITALS: Ht 180.3 cm; Wt 113.4 kg
[2023-05-07 16:40] LABS: BASOPHILS ABSOLUTE AUTO 0.08 K/mm3 (0.00-0.23); BASOPHILS PERCENT AUTO 1 % (0-2); EOSINOPHILS ABSOLUTE AUTO 0.28 K/mm3 (0.00-0.68); EOSINOPHILS PERCENT AUTO 4 % (0-6); Hematocrit 44.4 % (37.0-53.0); Hemoglobin 15.2 g/dL (13.5-17.5); IMMATURE GRAN ABSOLUTE AUTO 0.06 K/mm3 (0.00-0.10); IMMATURE GRAN PERCENT AUTO 1 % (0-1); LYMPHOCYTES ABSOLUTE AUTO 1.75 K/mm3 (0.84-5.20); LYMPHOCYTES PERCENT AUTO 26 % (21-46); MONOCYTES ABSOLUTE AUTO 1.21 K/mm3 (0.16-1.47); MONOCYTES PERCENT AUTO 18 % (4-13); Mean Corpuscular HGB 32.2 pg (26.0-34.0); Mean Corpuscular HGB Conc 34.2 g/dL (31.5-36.5); Mean Corpuscular Volume 94 fL (80-100); Mean Platelet Volume 9.8 fL (9.1-12.4); NEUTROPHILS ABSOLUTE AUTO 3.46 K/mm3 (1.96-9.15); NEUTROPHILS PERCENT AUTO 51 % (41-73); Platelet Count 321 K/mm3 (150-400); RDW Coefficient Variation 13.2 % (11.7-14.2); RDW Standard Deviation 45.7 fL (35.1-46.3); Red Blood Cell Count 4.72 M/mm3 (4.30-5.90); White Blood Cell Count 6.84 K/mm3 (4.00-11.30)
[2023-05-07 17:06] LABS: Magnesium, Blood 1.4 mg/dL (1.6-2.4)
[2023-05-07 17:07] LABS: Albumin, Blood 3.3 g/dL (3.4-5.0); Albumin/Globulin Ratio 0.8 (0.8-1.8); Bun/Creatinine Ratio 8.8 (12.0-20.0); Calcium, Blood 9.7 mg/dL (8.5-10.1); Creatinine, Blood 0.8 mg/dL (0.60-1.20); Phosphorus, Blood 4.2 mg/dL (2.5-4.9); Potassium, Blood 4.2 mmol/L (3.5-5.5); Total Protein, Blood 7.3 g/dL (6.4-8.2)
[2023-05-07 20:46] LABS: Source, Urine Clean Catch
[2023-05-07 20:52] LABS: Appearance, Urine Clear (Clear); Bilirubin, Urine Neg (Neg); Blood, Urine Neg (Neg); Color, Urine Amber (P-Yellow); Glucose Qualitative, Urine Neg (Neg); Ketones, Urine 3+ (Neg); Leukocyte Esterase, Urine Neg (Neg); Nitrite, Urine Neg (Neg); Protein, Urine 1+ (Neg); Urobilinogen, Urine NORM (Normal)
[2023-05-07 22:15] VITALS: BP 151/68
[2023-05-07] MEDS ORDERED: ONDA4ODT SL (22:15)
[2023-05-07] MEDS ORDERED: MAGNESIUM OXID500 MG PO (22:15)
== END 2023-05-07 22:37 | disposition home or self-care (01) ==
LOC: ER 15:51
PROVIDERS: Emergency Medicine; Physician Assistant
DX: R10.9 Unspecified abdominal pain (principal); R11.0 Nausea; R19.7 Diarrhea, unspecified; E11.9 Type 2 diabetes mellitus without complications; I10 Essential (primary) hypertension; Z79.899 Other long term (current) drug therapy; Z88.5 Allergy status to narcotic agent; Z91.040 Latex allergy status; Z87.891 Personal history of nicotine dependence
CPT/HCPCS: 74177; 80053; 83690; 83735; 84100; 85025; 93005; 93010; 96365-59; 99284-25; A9270; J2405; J3475; J7030; Q9967